=== PATIENT | male | born 1975 | race Hispanic/Latino ===

== ENCOUNTER 2017-08-19 15:02 | Emergency (ER) | payer OTHER, SELFPAY ==
--- NOTE | 2017-08-19 18:01 | ER ---
Nurse's Notes [facility] Name: Harini Villalobos Age: 41 yrs Sex: Male : 1975 Arrival Date: 08/19/2017 Time: 15:02 Bed 15 Private MD: Diagnosis: Low back pain;Radiculopathy, lumbar region Presentation: 08/19 15:34 Presenting complaint: Patient states: Low back pain for 2 months. Has been seeing a chiropractor but is not improving. Was instructed to go see PCP. Unable to get into PCP until next week. Ambulated with steady gait to triage. Patient was asleep in waiting room when called. Transition of care: patient was not received from another setting of care. Onset of symptoms was May 2017. Initial Sepsis Screen: Does the patient meet any 2 criteria? No. Patient's initial sepsis screen is negative. Does the patient have a suspected source of infection? No. Patient's initial sepsis screen is negative. Care prior to arrival: None. 15:34 Method Of Arrival: Ambulatory 15:34 Acuity: MELO 5 Triage Assessment: 15:36 General: Appears in no apparent distress. comfortable, Behavior is calm, cooperative, aj appropriate for age. Pain: Complains of pain in coccyx, left lower back and right lower back Pain currently is 7 out of 10 on a pain scale. Neuro: Level of Consciousness is awake, alert, obeys commands, Oriented to person, place, time, situation, Appropriate for age. Respiratory: Airway is patent Respiratory effort is even, unlabored, Respiratory pattern is regular, symmetrical. Derm: Skin is intact, is healthy with good turgor, Skin is pink, warm \T\ dry. normal. Musculoskeletal: Circulation, motion, and sensation intact. Range of motion: intact in all extremities, Reports pain in coccyx, left lower back, right lower back, left gluteus kuldip and left gluteal fold. Historical: - Allergies: 15:36 No Known Drug Allergies; aj - Home Meds: 15:36 unknown blood pressure med [Active]; aj - PMHx: 15:36 Hypertension; Diverticulitis; aj - PSHx: 15:36 Colon resection; aj - Immunization history:: Adult Immunizations up to date. - Social history:: Smoking status: Patient/guardian denies using tobacco. Screenin:25 Abuse screen: Denies threats or abuse. Nutritional screening: No deficits noted. rb1 Tuberculosis screening: No symptoms or risk factors identified. Fall Risk None identified. Assessment: 17:25 General: Appears uncomfortable, obese, Behavior is calm, cooperative, Denies fever. rb1 Pain: Complains of pain in left lower back Pain radiates to left leg Pain currently is 10 out of 10 on a pain scale. Pain began about two months ago Aggravated by increased activity, repositioning. Neuro: Level of Consciousness is awake, alert, obeys commands, Oriented to person, place, time, situation. Cardiovascular: Capillary refill < 3 seconds is brisk in bilateral fingers. Respiratory: Airway is patent Respiratory effort is even, unlabored, Respiratory pattern is regular, symmetrical. GI: No signs and/or symptoms were reported involving the gastrointestinal system. : No signs and/or symptoms were reported regarding the genitourinary system. Derm: Skin is pink, warm \T\ dry. Musculoskeletal: Range of motion: intact in all extremities. 18:22 Reassessment: Patient appears in no apparent distress at this time. No changes from rb1 previously documented assessment. 18:30 Reassessment: discharge on hold due to shot of Toradol, waiting to make sure there are rb1 ADR. Vital Signs: 15:36 BP 161 / 101; Pulse 107; Resp 17; Temp 97.9; Pulse Ox 98% on R/A; Weight 123.83 kg; aj Height 6 ft. 0 in. (182.88 cm); Pain 7/10; 17:30 BP 146 / 80; Pulse 77; Resp 19; Pulse Ox 100% on R/A; Pain 10/10; rb1 18:22 BP 149 / 83; Pulse 83; Resp 19; Pulse Ox 99% on R/A; rb1 15:36 Body Mass Index 37.03 (123.83 kg, 182.88 cm) aj ED Course: 15:02 Patient arrived in ED. as 15:35 Triage completed. aj 15:36 Arm band placed on left wrist. Patient placed in waiting room, Patient notified of wait aj time. 16:07 Elad[facility] Aldana [facility]C [facility]. snw 16:07 Franki Loja MD is Attending Physician. snw 17:25 Patient has correct armband on for positive identification. Bed in low position. Call rb1 light in reach. Side rails up X 1. Pulse ox on. NIBP on. 17:30 Kimmy García, RN is Primary Nurse. rb1 18:50 No provider procedures requiring assistance completed. Patient did not have IV access rb1 during this emergency room visit. Administered Medications: 18:21 Drug: TORadol 60 mg Route: IM; Site: left gluteus; rb1 18:50 Follow up: Response: No adverse reaction; Pain is decreased rb1 18:21 Drug: Valium 5 mg Route: PO; rb1 18:50 Follow up: Response: No adverse reaction; Pain is decreased rb1 Outcome: 18:00 Discharge ordered by . snsantiago 18:50 Patient left the ED. rb1 18:50 Discharged to home ambulatory, with significant other. [facility] 18:50 Condition: stable 18:50 Discharge instructions given to patient, Instructed on discharge instructions, follow up and referral plans. medication usage, Demonstrated understanding of instructions, follow-up care, medications, Prescriptions given X 2. Signatures: Arlette Jeffery RN RN Eladia Bah, BRILLIANDEER LOPPER-C BRILLIANDEER LOPPER-CsnNya Sánchez Rebecca, RN RN [facility] Maren Angel [facility] Corrections: (The following items were deleted from the chart) 19:26 19:00 Patient left the ED. 5 [facility]
--- NOTE | 2017-08-19 18:01 | EDPHYS ---
Physician Documentation [facility] Name: Harini Villalobos Age: 41 yrs Sex: Male : 1975 Arrival Date: 08/19/2017 Time: 15:02 Bed 15 Private MD: ED Physician Franki Loja HPI: 08/19 21:48 This 41 yrs old Male presents to ER via Ambulatory with complaints of Sciatic snw Nerve. 21:48 The patient presents with pain that is acute, with no known mechanism of injury, and snw decreased range of motion. The symptoms are located in the low back. Onset: The symptoms/episode began/occurred suddenly, 2 week(s) ago, and became persistent. The pain radiates to the left leg. Associated signs and symptoms: The patient has no apparent associated signs or symptoms. Severity of symptoms: At their worst the symptoms were moderate, severe. The patient has not experienced similar symptoms in the past. The patient has been recently seen by a physician: went to chiropractor and symptoms seem worse per report. Historical: - Allergies: 15:36 No Known Drug Allergies; aj - Home Meds: 15:36 unknown blood pressure med [Active]; aj - PMHx: 15:36 Hypertension; Diverticulitis; aj - PSHx: 15:36 Colon resection; aj - Immunization history:: Adult Immunizations up to date. - Social history:: Smoking status: Patient/guardian denies using tobacco. ROS: 21:45 Constitutional: Negative for fever, chills, and weight loss, Eyes: Negative for injury, snw pain, redness, and discharge, ENT: Negative for injury, pain, and discharge, Neck: Negative for injury, pain, and swelling, Cardiovascular: Negative for chest pain, palpitations, and edema, Respiratory: Negative for shortness of breath, cough, wheezing, and pleuritic chest pain, Abdomen/GI: Negative for abdominal pain, nausea, vomiting, diarrhea, and constipation, : Negative for injury, bleeding, discharge, and swelling, MS/Extremity: Negative for injury and deformity, Skin: Negative for injury, rash, and discoloration, Neuro: Negative for headache, weakness, numbness, tingling, and seizure. 21:45 Back: Positive for decreased range of motion, pain with movement, of the lumbar area, left low back and right low back. Exam: 21:45 Constitutional: This is a well developed, well nourished patient who is awake, alert, snw and in no acute distress. Head/Face: Normocephalic, atraumatic. Eyes: Pupils equal round and reactive to light, extra-ocular motions intact. Lids and lashes normal. Conjunctiva and sclera are non-icteric and not injected. Cornea within normal limits. Periorbital areas with no swelling, redness, or edema. ENT: Nares patent. No nasal discharge, no septal abnormalities noted. Tympanic membranes are normal and external auditory canals are clear. Oropharynx with no redness, swelling, or masses, exudates, or evidence of obstruction, uvula midline. Mucous membranes moist. Neck: Trachea midline, no thyromegaly or masses palpated, and no cervical lymphadenopathy. Supple, full range of motion without nuchal rigidity, or vertebral point tenderness. No Meningismus. Chest/axilla: Normal chest wall appearance and motion. Nontender with no deformity. No lesions are appreciated. Cardiovascular: Regular rate and rhythm with a normal S1 and S2. No gallops, murmurs, or rubs. Normal PMI, no JVD. No pulse deficits. Respiratory: Lungs have equal breath sounds bilaterally, clear to auscultation and percussion. No rales, rhonchi or wheezes noted. No increased work of breathing, no retractions or nasal flaring. Abdomen/GI: Soft, non-tender, with normal bowel sounds. No distension or tympany. No guarding or rebound. No evidence of tenderness throughout. Skin: Warm, dry with normal turgor. Normal color with no rashes, no lesions, and no evidence of cellulitis. MS/ Extremity: Pulses equal, no cyanosis. Neurovascular intact. Full, normal range of motion. Neuro: Awake and alert, GCS 15, oriented to person, place, time, and situation. Cranial nerves II-XII grossly intact. Motor strength 5/5 in all extremities. Sensory grossly intact. Cerebellar exam normal. Normal gait. 21:45 Back: pain, that is moderate, of the lumbar area, left low back and right low back, vertebral tenderness, is not appreciated, muscle spasm, is appreciated in the low back area. 21:49 Neuro: Exam negative for acute changes. snw Vital Signs: 15:36 BP 161 / 101; Pulse 107; Resp 17; Temp 97.9; Pulse Ox 98% on R/A; Weight 123.83 kg; aj Height 6 ft. 0 in. (182.88 cm); Pain 7/10; 17:30 BP 146 / 80; Pulse 77; Resp 19; Pulse Ox 100% on R/A; Pain 10/10; rb1 18:22 BP 149 / 83; Pulse 83; Resp 19; Pulse Ox 99% on R/A; rb1 15:36 Body Mass Index 37.03 (123.83 kg, 182.88 cm) aj MDM: 17:29 Patient medically screened. snw 21:46 Data reviewed: vital signs, nurses notes. Data interpreted: Pulse oximetry: on room air snw is 99 %. Interpretation: normal. Counseling: I had a detailed discussion with the patient and/or guardian regarding: the historical points, exam findings, and any diagnostic results supporting the discharge/admit diagnosis, the presence of at least one elevated blood pressure reading (>120/80) during this emergency department visit, the need for outpatient follow up, to return to the emergency department if symptoms worsen or persist or if there are any questions or concerns that arise at home. Special discussion: I have referred the patient to see his PCP for further evaluation of high blood pressure. Based on the history and exam findings, there is no indication for further emergent testing or inpatient evaluation. I discussed with the patient/guardian the need to see the primary care provider for further evaluation of the symptoms. Administered Medications: 18:21 Drug: TORadol 60 mg Route: IM; Site: left gluteus; rb1 18:50 Follow up: Response: No adverse reaction; Pain is decreased rb1 18:21 Drug: Valium 5 mg Route: PO; rb1 18:50 Follow up: Response: No adverse reaction; Pain is decreased rb1 Disposition: 08/19/17 18:00 Discharged to Home. Impression: Low back pain, Radiculopathy, lumbar region. - Condition is Stable. - Discharge Instructions: Back Pain, Adult, Hypertension, Lumbosacral Radiculopathy, Musculoskeletal Pain, Back Injury Prevention, [id number], Back Exercises, [id number], Cryotherapy, Heat Therapy. - Prescriptions for Diclofenac Sodium 75 mg Oral Tablet Sustained Release - take 1 tablet by ORAL route 2 times per day; 30 tablet. orphenadrine citrate 100 mg Oral Tablet Sustained Release - take 1 tablet by ORAL route 2 times per day As needed; 20 tablet. - Work release form, Medication Reconciliation Form, Thank You Letter, Antibiotic Education, Prescription Opioid Use form. - Follow up: Private Physician; When: 2 - 3 days; Reason: Recheck today's complaints, Continuance of care, Re-evaluation by your physician. Follow up: Emergency Department; When: As needed; Reason: Worsening of condition. Addendum: 08/22/2017 19:05 Co-signature as Attending Physician, Franki Loja MD. g s Signatures: Arlette Jeffery, RN RN Eladia Bah, EMPLOYEE COMMUNICATIONS MANAGER-C EMPLOYEE COMMUNICATIONS MANAGER-Csnw Kimmy García, RN RN [facility] Maren Angel [facility] Franki Loja MD MD
[2017-08-19] MEDS ORDERED: DIAZEPAM 5 MG TABLET ONE (18:14)
[2017-08-19] MEDS ORDERED: KETOROLAC 30 MG/ML INJ ONE (18:15)
== END 2017-08-19 19:00 | disposition home or self-care (01) ==
LOC: ER 15:02
DX: M54.16 Radiculopathy, lumbar region (principal); I10 Essential (primary) hypertension
CPT/HCPCS: 96372; 99283

== ENCOUNTER 2021-10-20 16:12 | Emergency (ER) | payer SELFPAY ==
[2021-10-20 17:18] LABS: Absolute Lymphocytes (CBC) 0.9 K/uL (0.7-4.9); Hematocrit 46.2 % (39.6-49.0); Lymphocytes % 8.8 % (15.3-44.8); MPV 7.8 fL (7.6-11.3); RBC Red Blood Cell Count 5.45 M/uL (4.33-5.43)
[2021-10-20 17:23] LABS: Albumin 3.2 g/dL (3.4-5.0); Bilirubin Total 0.8 mg/dL (0.2-1.0); Potassium 3.3 mmol/L (3.5-5.1); Protein, Total 7.8 g/dL (6.4-8.2)
--- NOTE | 2021-10-20 18:10 | RAD REPORT ---
EXAM DESCRIPTION: CT - Abdomen Pelvis W Contrast - 10/20/2021 5:51 pm CLINICAL HISTORY: abdominal pain, history of colon resection COMPARISON: No comparisons TECHNIQUE: Biphasic, helical CT imaging of the abdomen and pelvis was performed following 100 ml non -ionic IV contrast. No oral contrast administered. All CT scans are performed using dose optimization technique as appropriate and may include automated exposure control or mA/KV adjustment according to patient size. FINDINGS: Small right-sided pleural effusion is present with trace left-sided pleural fluid. No infi ltrate or mass in the lower lung rivera. No pericardial effusion. Liver size is normal with no focal liver lesions seen. No splenic abnormality identifiable. Multiple gallstones are present believed to be incidental to the clinical presentation. No acute gallbladder w all thickening or edema. No biliary tree abnormality. Pancreatic parenchyma appears to enhance normally with no pancreatic origin mass confirmed. However, there are numerous peripancreatic abnormal lymph nodes up to 3 x 2 cm in size. The patient has multip le lymph nodes along the mesenteric vascular pedicle origins. A spiculated 2.6 centimeter mass is pre sent in the midline central mesenteries. Numerous lymph nodes are scattered along the mesenteric vasc ulature. A 3.1 x 2.7 centimeter mass or compliments of lymph nodes noted along the right lateral margin of the aorta just below the renal vasculature. A few additional scattered periaortic lymph nodes seen. Symmetric renal function is seen with no hydronephrosis or suspicious renal mass. No pyelonephritis o r acute parenchymal process. No bladder abnormalities. No adrenal abnormalities. Fluid-filled stomach shows no wall thickening or mass. No duodenum abnormality is seen. No acute smal l bowel process identifiable. Patient is status post partial right-sided colectomy. At the anastomosi s with the small bowel there is slightly thickened or nodular tissue. Baseline for the patient is unk nown. There is no oral contrast distending this portion of the bowel. This may still be within normal limits. Or recurrence at an anastomotic site cannot be excluded if the colon was resected for malign ant purposes. No omental thickening. Trace amount of ascites present. No free air or pneumatosis. There is no bulk y lymphadenopathy. No suspicious bony findings. IMPRESSION: Numerous malignant lymph nodes are present in the peripancreatic region, periaortic and scattered along the mesenteric vasculature. The peripancreatic lymph nodes do not appear to be associated with any defined pancreatic origin mass . The bowel wall at the right-side colon - small bowel anastomosis is slightly thickened and nodular. B aseline for the patient is unknown. This may be normal. Recurrence at this site cannot be excluded en tirely. The abnormal abdominal lymph nodes are not clustered near this site. None of the malignant lymph nodes seen on this study are amenable to percutaneous biopsy.
[2021-10-20] MEDS ORDERED: ONDANSETRON 4 MG/2 ML VIAL ONE (19:02)
--- NOTE | 2021-10-20 20:07 | ER ---
Nurse's Notes [facility] Name: Harini Villalobos Age: 46 yrs Sex: Male : 1975 Arrival Date: 10/20/2021 Time: 16:39 Bed 14 Private MD: Diagnosis: Nausea with vomiting, unspecified;Diarrhea, unspecified Presentation: 10/20 16:44 Chief complaint: Patient states: back pain, vomiting, diarrhea, chills. Coronavirus aa5 screen: At this time, the client does not indicate any symptoms associated with coronavirus-19. Ebola Screen: No symptoms or risks identified at this time. Initial Sepsis Screen: Does the patient meet any 2 criteria? No. Patient's initial sepsis screen is negative. Does the patient have a suspected source of infection? No. Patient's initial sepsis screen is negative. Risk Assessment: Do you want to hurt yourself or someone else? Patient reports no desire to harm self or others. Onset of symptoms was September 2021. 16:44 Acuity: MELO 3 aa5 16:44 Method Of Arrival: Ambulatory aa5 Triage Assessment: 18:00 General: Appears in no apparent distress. Behavior is calm, cooperative. jh6 Historical: - Allergies: 16:43 No Known Allergies; aa5 - Home Meds: 16:47 metoprolol 100mg BID [Active]; aa5 18:52 UNKNOWN BLOOD PRESSURE MED [Active]; jh6 - PMHx: 16:43 Diverticulitis; Hypertension; aa5 - PSHx: 16:44 Colon Resection; aa5 - Immunization history:: Adult Immunizations unknown. - Social history:: Smoking status: Patient denies any tobacco usage or history of. Screenin:00 Abuse screen: Denies threats or abuse. Denies injuries from another. jh6 18:00 Nutritional screening: No deficits noted. Tuberculosis screening: No symptoms or risk jh6 factors identified. Never had TB. Fall Risk None identified. Assessment: 17:12 Reassessment: Patient is alert, oriented x 3, equal unlabored respirations, skin aa5 warm/dry/pink. 18:30 Reassessment: Patient and/or family updated on plan of care and expected duration. Pain jh6 level reassessed. Patient states symptoms have improved. 18:30 Pain: Complains of pain in epigastric area and abdomen diffusely Pain currently is 5 jh6 out of 10 on a pain scale. GI: Abdomen is non-distended, Bowel sounds hyperactive in suprapubic area, right upper quadrant, left upper quadrant, right lower quadrant, left lower quadrant and abdomen diffusely Abdomen is tender to palpation in right upper quadrant and left upper quadrant Reports nausea, vomiting. Vital Signs: 16:44 BP 187 / 116; Pulse 76; Resp 18 S; Temp 97.5(TE); Pulse Ox 99% on R/A; Weight 120.2 kg aa5 (R); Height 6 ft. 0 in. (182.88 cm) (R); 17:12 Resp 14 S; Pulse Ox 99% on R/A; aa5 18:30 BP 185 / 97; Pulse 74; Resp 17; Temp 97.5(O); Pulse Ox 99% ; jh6 20:45 BP 172 / 93; Pulse 72; Resp 17; Temp 97.4(O); ke1 16:44 Body Mass Index 35.94 (120.20 kg, 182.88 cm) aa5 ED Course: 16:39 Patient arrived in ED. rg4 16:40 Samuel Sheehan MD is Attending Physician. rn 16:40 Karli Damon FNP-C is PHCP. kb 16:43 Arm band placed on. aa5 16:45 Triage completed. aa5 16:57 Initial lab(s) drawn, by in, sent to lab. Inserted saline lock: 20 gauge in right aa5 antecubital area, using aseptic technique. Blood collected. 17:01 Karli Damon FNP-C is PHCP. kb 17:01 Samuel Sheehan MD is Attending Physician. kb 17:53 CT Abd/Pelvis - IV Contrast Only In Process Unspecified. EDMS 18:00 Bed in low position. Call light in reach. Side rails up X 1. Adult w/ patient. jh6 18:10 Danielle Betts, RN is Primary Nurse. 6 21:03 No provider procedures requiring assistance completed. IV discontinued. ke1 Administered Medications: 17:05 Drug: NS 0.9% 1000 ml Route: IV; Rate: 1 bolus; Site: right antecubital; aa5 19:00 Follow up: IV Status: Completed infusion ke1 17:05 Drug: Zofran (Ondansetron) 4 mg Route: IVP; Site: right antecubital; aa5 17:11 Follow up: Response: No adverse reaction aa5 17:07 Drug: morphine 4 mg Route: IVP; Infused Over: 4 mins; Site: right antecubital; aa5 17:11 Follow up: Response: RASS: Alert and Calm (0) aa5 18:56 Drug: Zofran (Ondansetron) 4 mg Route: IVP; Site: right antecubital; 6 19:30 Follow up: Response: Marked relief of symptoms ke1 Medication: 21:03 VIS not applicable for this client. ke1 Outcome: 20:06 Discharge ordered by . haylie 21:03 Discharged to home ambulatory. ke1 21:03 Condition: good 21:03 Discharge instructions given to patient. 21:05 Patient left the ED. ke1 Signatures: Dispatcher [employer] EDMS Karli Damon, FRANCISCO-C PAEDIATRICIAN-CkSamuel Keys MD MD rn Calderon, Audri, RN RN shane5 Pamela Do [facility] Danielle Betts RN RN 6 Avery Alejandro, TIM RN ke1 Corrections: (The following items were deleted from the chart) 16:46 16:44 Pulse 76bpm; Resp 18bpm; Spontaneous; Pulse Ox 99% RA; Temp 97.5F Temporal; aa5 aa5 16:47 16:44 Pulse 76bpm; Resp 18bpm; Spontaneous; Pulse Ox 99% RA; Temp 97.5F Temporal; 120.2 aa5 kg Reported; Height 6 ft. 0 in. Reported; BMI: 35.9; aa5
--- NOTE | 2021-10-20 20:07 | EDPHYS ---
Physician Documentation [facility] Name: Harini Villalobos Age: 46 yrs Sex: Male : 1975 Arrival Date: 10/20/2021 Time: 16:39 Bed 14 Private MD: ED Physician Samuel Sheehan HPI: 10/20 18:29 This 46 yrs old Male presents to ER via Ambulatory with complaints of Vomiting.kb 18:29 The patient presents to the emergency department with nausea, vomiting, diarrhea, kb abdominal pain. Onset: The symptoms/episode began/occurred at 01:00. Possible causes: unknown. The symptoms are aggravated by nothing. The symptoms are alleviated by nothing. Associated signs and symptoms: Pertinent positives: abdominal pain, diarrhea, nausea, vomiting. Severity of symptoms: At their worst the symptoms were moderate in the emergency department the symptoms are unchanged. The patient has not experienced similar symptoms in the past. The patient has not recently seen a physician. Pt reports n/v/d that started at 0100. States he has diffuse abd pain due to vomiting. Historical: - Allergies: 16:43 No Known Allergies; aa5 - Home Meds: 16:47 metoprolol 100mg BID [Active]; aa5 18:52 UNKNOWN BLOOD PRESSURE MED [Active]; jh6 - PMHx: 16:43 Diverticulitis; Hypertension; aa5 - PSHx: 16:44 Colon Resection; aa5 - Immunization history:: Adult Immunizations unknown. - Social history:: Smoking status: Patient denies any tobacco usage or history of. ROS: 18:28 Respiratory: Negative for shortness of breath, cough, wheezing, and pleuritic chest kb pain. 18:28 Constitutional: Positive for chills. 18:28 Abdomen/GI: Positive for abdominal pain, nausea, vomiting, and diarrhea, Negative for constipation, abdominal distension. 18:28 Back: Positive for pain at rest, pain with movement, of the right mid back and right low back. 18:28 All other systems are negative. Exam: 18:28 Constitutional: This is a well developed, well nourished patient who is awake, alert, kb and in no acute distress. Head/Face: Normocephalic, atraumatic. ENT: Moist Mucous membranes Cardiovascular: Regular rate and rhythm with a normal S1 and S2. No gallops, murmurs, or rubs. No pulse deficits. Respiratory: Respirations even and unlabored. No increased work of breathing. Talking in full sentences Skin: Warm, dry with normal turgor. Normal color. MS/ Extremity: Pulses equal, no cyanosis. Neurovascular intact. Full, normal range of motion. Neuro: Awake and alert, GCS 15, oriented to person, place, time, and situation. Moves all extremities. Normal gait. Psych: Awake, alert, with orientation to person, place and time. Behavior, mood, and affect are within normal limits. 18:28 Abdomen/GI: Inspection: abdomen appears normal, Bowel sounds: normal, Palpation: abdomen is soft and non-tender, in all quadrants. 18:29 Back: pain, that is mild, of the right mid back and right low back. kb Vital Signs: 16:44 BP 187 / 116; Pulse 76; Resp 18 S; Temp 97.5(TE); Pulse Ox 99% on R/A; Weight 120.2 kg aa5 (R); Height 6 ft. 0 in. (182.88 cm) (R); 17:12 Resp 14 S; Pulse Ox 99% on R/A; aa5 18:30 BP 185 / 97; Pulse 74; Resp 17; Temp 97.5(O); Pulse Ox 99% ; jh6 20:45 BP 172 / 93; Pulse 72; Resp 17; Temp 97.4(O); ke1 16:44 Body Mass Index 35.94 (120.20 kg, 182.88 cm) aa5 MDM: 16:40 Patient medically screened. rn 18:27 Data reviewed: vital signs, nurses notes. Data interpreted: Pulse oximetry: on room air kb is 99 %. Interpretation: normal. 19:25 Special discussion: I discussed with the patient the need to follow-up with the kb PCP/specialist for the noted incidental finding on X-ray/CT scanning. ED course: Pt educated on malignant lymphnodes and to follow up with GI for further workup. Verbal understanding received from pt and spouse. . 20:06 Counseling: I had a detailed discussion with the patient and/or guardian regarding: the kb historical points, exam findings, and any diagnostic results supporting the discharge/admit diagnosis, lab results, radiology results, the need for outpatient follow up, a family practitioner, a patient service representative, to return to the emergency department if symptoms worsen or persist or if there are any questions or concerns that arise at home. 10/20 16:49 Order name: CBC with Diff; Complete Time: 17:36 kb 10/20 16:49 Order name: CMP; Complete Time: 17:34 kb 10/20 16:49 Order name: Lipase; Complete Time: 17:34 kb 10/20 16:49 Order name: Flu; Complete Time: 17:34 kb 10/20 16:49 Order name: COVID-19 SARS RT PCR (Document "Date of Onset" if Symptomatic); Complete kb Time: 18:46 10/20 17:37 Order name: CT Abd/Pelvis - IV Contrast Only; Complete Time: 18:16 kb 10/20 16:49 Order name: IV Saline Lock; Complete Time: 16:59 kb 10/20 16:49 Order name: Labs collected and sent; Complete Time: 16:59 kb 10/20 18:53 Order name: PO challenge; Complete Time: 21:04 kb Administered Medications: 17:05 Drug: NS 0.9% 1000 ml Route: IV; Rate: 1 bolus; Site: right antecubital; aa5 19:00 Follow up: IV Status: Completed infusion ke1 17:05 Drug: Zofran (Ondansetron) 4 mg Route: IVP; Site: right antecubital; aa5 17:11 Follow up: Response: No adverse reaction aa5 17:07 Drug: morphine 4 mg Route: IVP; Infused Over: 4 mins; Site: right antecubital; aa5 17:11 Follow up: Response: RASS: Alert and Calm (0) aa5 18:56 Drug: Zofran (Ondansetron) 4 mg Route: IVP; Site: right antecubital; jh6 19:30 Follow up: Response: Marked relief of symptoms ke1 Disposition Summary: 10/20/21 20:06 Discharge Ordered Location: Home kb Condition: Stable kb Diagnosis - Nausea with vomiting, unspecified kb - Diarrhea, unspecified kb Followup: kb - With: Emergency Department - When: As needed - Reason: Worsening of condition Followup: kb - With: Private Physician - When: 2 - 3 days - Reason: Recheck today's complaints, Continuance of care, Re-evaluation by your physician Discharge Instructions: - Discharge Summary Sheet kb - Food Choices to Help Relieve Diarrhea, Adult kb - Nausea and Vomiting, Adult, [id number] kb - Diarrhea, Adult, [id number] kb Forms: - Medication Reconciliation Form kb - Thank You Letter kb - Antibiotic Education kb - Prescription Opioid Use kb - Work release form ke1 Prescriptions: - Zofran 4 mg Oral Tablet - take 1 tablet by ORAL route every 6 hours As needed; 20 tablet; Refills: 0, kb Product Selection Permitted - dicyclomine 20 mg Oral Tablet - take 1 tablet by ORAL route 4 times per day As needed; 20 tablet; Refills: 0, kb Product Selection Permitted Signatures: Dispatcher [employer] EDMS Karli Damon, PERSONAL BANKING OFFICER-C PERSONAL BANKING OFFICER-Ckb Samuel Sheehan MD MD rn Calderon, Audri RN RN aa5 Danielle Betts RN RN jh6 Avery Alejandro RN ke1
[2021-10-20 22:22] VITALS: O2SAT 99
[2021-10-20 22:30] VITALS: BP 172/93; TEMP 97.4
== END 2021-10-20 21:05 | disposition home or self-care (01) ==
LOC: ER 16:12
DX: R11.2 Nausea with vomiting, unspecified (principal); R19.7 Diarrhea, unspecified; I10 Essential (primary) hypertension
CPT/HCPCS: 36415; 74177; 80053; 83690; 85025; 87804; J2405; Q9967; U0003

== ENCOUNTER 2023-11-02 10:57 | Emergency (ER) | payer BC ==
[2023-11-02] MEDS ORDERED: HYDROCODONE/APAP 7.5/325 MG TAB ONE (11:33)
--- OUTSIDE RECORDS SUMMARY | 2023-11-02 11:36 | XMS REPORT | Clinical Summary ---
Author Name Unknown Organization [facility] Address [address] [place] [address] Care Team Providers Care Sql Server Bi Developer Name Role Phone Eliane Harris MD Unavailable [phone] Carol Gonzales Primary Care Provider [phone] Jun Cotton MD Primary Care Provider [phone] Allergies No known active allergies Medications Medication Sig Dispensed Refills Start Date End Date Status metoprolol tartrate (LOPRESSOR) 50 mg tablet Take 1 tablet (50 mg) by mouth twice daily. Active furosemide (LASIX) 20 mg tablet Take 1 tablet (20 mg) by mouth twice daily. Active multivit-min/folic/ vit K/lycop (MEN'S MULTIVITAMIN ORAL) Take by mouth daily as needed. Active ALPRAZolam (Xanax) 0.5 mg tabletIndications:C laustrophobia Take 1 tablet (0.5 mg) by mouth nightly as needed (take [address] or MRI). 2 tablet 10/19/2023 Active pancrelipase (CREON) 12,000 units-38,000 units-60,000 units capsuleIndications: Pancreatic insufficiency Take 2-3 capsules with meals and 1-2 capsules with snacks 390 capsule 3 10/26/2023 Active pantoprazole (PROTONIX) 40 mg EC tablet Take 1 tablet (40 mg) by mouth daily as needed. 4 Discontinue d(Therapy completed) octreotide acetate (SANDOSTATIN INJECTION) Inject as directed every 28 days. 4 Discontinue d(Formulary change) ALPRAZolam (Xanax) 0.5 mg tabletIndications:C laustrophobia Take 1 tablet (0.5 mg) by mouth nightly as needed (take [address] or MRI). 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) 10/29/2023 Travel 10/26/2023 11:20 AM CDT [facility] [address] [place] [address], [address] [place] [address] [place] [address] Jun Cotton MD 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); Pancreatic insufficiency 10/26/2023 Orders Only [facility] [address] [place] [address], [address] [place] [address] [place] [address] Keeley Teran PA-C 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) 10/25/2023 12:20 PM CDT Ancillary Procedure [address] [address] Jun Cotton MD Malignant carcinoid tumor of the ileum 10/25/2023 Travel 10/22/2023 Telephone [facility] [address] [place] [address], [facility] [place] [address] Nadine Shabazz MA 10/19/2023 Orders Only [facility] [address] [place] [address], [facility] [place] [address] Keeley Teran PA-C Claustrophobia 10/19/2023 Refill [facility] [address], [address] [place] [address] [place] [address] Jacinta Lee, TIM 10/01/2023 11:00 AM CDT Clinical Support [facility] [address] [place] [address], [address] [place], [place] [address] [address] Jun Cotton MD Lapizar, Maryjune P, RN 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) 10/01/2023 Travel 09/03/2023 11:00 AM CDT Clinical Support [facility] [address], [address] [place] [address] Jun Cotton MD Wright, Elcenia, RN 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) 09/03/2023 Travel 08/06/2023 11:00 AM CDT Clinical Support [facility] [address] [address] Jun Cotton MD Lapizar, Maryjune P RN 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) 08/06/2023 Travel 07/27/2023 11:20 AM CDT Telemedicine [facility] [address], [address] [place] [address] Jun Cotton MD 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) 07/22/2023 [facility] Only [facility] [address] [place] [address], [address] [place] [address] Keeley Teran PA-C 07/14/2023 12:53 PM CDT - 07/14/2023 11:59 PM CDT Hospital Encounter Main CT IMAGING [address] [place] [address], [facility] [place] [address] Jun Cotton MD Malignant carcinoid tumor of the ileum Discharge Disposition: Home 07/14/2023 12:30 PM CDT - 07/14/2023 12:52 PM CDT Hospital Encounter [facility] [address] [place] [address], [place] [address] Jun Cotton MD Malignant carcinoid tumor of the ileum Discharge Disposition: Home 06/25/2023 10:00 AM CHAR BELT OPERATOR Clinical Support [facility] [address] [place] [address], 7th [place] [address] Jun Cotton MD Wright, Elcenia, RN 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) 06/25/2023 Travel 05/28/2023 10:00 AM CHAR BELT OPERATOR Clinical Support [facility] [address] [place] [address], [facility] [place] [address] Jun Cotton MD Lapizar, Maryjune P, RN 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) 05/28/2023 Travel 04/23/2023 Telephone [facility] [address] [place] [address], [address] [place], [place] [address] [address] Sunni Jacobson RN 04/23/2023 Documentation [facility] [address] [place] [address], [facility] [place] [address] Sunni Jacobson RN 04/15/2023 10:00 AM CHAR BELT OPERATOR Nutrition Clinical Nutrition For your Nutrition appointment location directions please call: Carol Gonzales PA Moore, Stephanie, CONNIE 04/15/2023 9:20 AM CHAR BELT OPERATOR Follow-Up [facility] [address] [place] [address], [address] [place] [address] [place] [address] Jun Cotton MD 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) 04/15/2023 Travel 04/14/2023 10:02 AM CHAR BELT OPERATOR - 04/14/2023 11:59 PM CHAR BELT OPERATOR Hospital Encounter [facility] [address] [place] [address], [place] [address] Jun Cotton MD Malignant carcinoid tumor of the ileum Discharge Disposition: Home 04/14/2023 10:02 AM CHAR BELT OPERATOR - 04/14/2023 11:59 PM CHAR BELT OPERATOR Hospital Encounter Main CT IMAGING [address] [facility] Main Bldg, 3rd [place] [address] Jun Cotton MD Malignant carcinoid tumor of the ileum Discharge Disposition: Home 01/11/2023 3:00 PM CDT Nutrition Clinical Nutrition For your Nutrition appointment location directions please call: Jun Cotton MD Moore, Stephanie, RD Malignant carcinoid tumor of the ileum 01/01/2023 Lab Requisition [facility] Bradley Monteiro MD Ketcham, Megan 12/31/2022 3:00 PM CDT [facility]Up [facility] [address] [place] [address], 7th [place] [address] Jun Cotton MD 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) 12/31/2022 Travel 12/24/2022 10:57 AM CDT - 12/24/2022 11:59 PM CDT Hospital Encounter Main CT IMAGING [facility] Main [facility], 3rd [place] [address] Carol Gonzales PA Neuroendocrine tumor Discharge Disposition: Home 12/24/2022 10:20 AM CDT - 12/24/2022 10:56 AM CDT Hospital Encounter [facility] [address] [place] [address] Main [facility], [place] [address] Carol Gonzales PA Neuroendocrine tumor Discharge Disposition: Home 12/24/2022 9:00 AM CDT Office Visit [facility] [address] [place] [address] Main [facility], 7th [place] [address] Carol Gonzales PA Claustrophobia (Primary Dx); Neuroendocrine tumor 12/24/2022 8:30 AM CDT NPR MDA PATIENT ACCESS 12/24/2022 Travel 12/21/2022 Orders Only [facility] [address] [place] [address] Main [facility], 7th [place] [address] Carol Gonzales PA Neuroendocrine tumor (Primary Dx) 12/19/2022 2:55 AM CDT Ancillary Procedure [facility] [place] [address] Carol Gonzales ROBBIE Cancer 12/19/2022 2:50 AM CDT Ancillary Procedure [facility] [place] [address] Carol Gonzales, PA Cancer 12/19/2022 2:45 AM CDT Ancillary Procedure [facility] [address] [place] [address] Carol Gonzales, PA Cancer 12/19/2022 2:40 AM CDT Ancillary Procedure [facility] [address] [place] [address] Carol Gonzales, ROBBIE Cancer 12/19/2022 2:35 AM CDT Ancillary Procedure [facility] [address] [place] [address] Carol Gonzales [place] Cancer 12/19/2022 2:30 AM CDT Ancillary Procedure [facility] [address] [place] [address] Carol Gonzales [place] Cancer 12/19/2022 2:25 AM CDT Ancillary Procedure [facility] [address] [place] [address] Carol Gonzales, [place] Cancer 12/15/2022 Travel after 11/02/2022 Surgical History Surgery Date Site/Laterality Comments COLONOSCOPY jan 2022 UPPER GASTROINTESTINAL ENDOSCOPY mar 2022 HEMICOLECTOMY Medical History Medical History Date Comments Diverticulitis 1997 Pancreatic cancer mar 2022 Neuroendocrine tumor Umbilical hernia Chylous ascites Family History Medical History Relation Name Comments Prostate cancer Father Khadar Villalobos about 30 ye ars ago Breast cancer Mother Josie Villalobos about 30 Years ago Relation Name Status Comments Father Khadar Villalobos Mother Josie Villalobos Social History Tobacco Use Types Packs/Day Years Used Date Smoking Tobacco: Never Smokeless Tobacco: Never Alcohol Use Standard Drinks/Week Comments Not Currently 0 (1 standard drink = 0.6 oz pur e alcohol) Sex and Gender Information Value Date Recorded Sex Assigned at Not on file Gender Identity Not on file Sexual Orientation Not on file Job Start Date Occupation Industry Not on file Not on file Not on file Obstetrics History Last Filed Vital Signs Vital Sign Reading Time Taken Comments Blood Pressure 136/86 10/29/2023 9:11 AM CDT Pulse 63 10/29/2023 9:11 AM CDT Temperature 36.5 C (97.7 F) 10/29/2023 9:11 AM CD T Respiratory Rate 18 10/29/2023 9:11 AM CDT Oxygen Saturation 98% 10/29/2023 9:11 AM CDT Inhaled Oxygen Concentration - - Weight 106.6 kg (235 lb 0.2 oz) 024 12:26 PM CDT Height 181 cm (5' 11.26") 10/25/2023 12 :26 PM CDT Body Mass Index 32.54 10/25/2023 12:26 PM CDT Plan of Treatment Upcoming Encounters Date Type Department Care Team (Late st Contact Info) Description 11/26/2023 11:00 AM CDT Clinical Support [facility] [address] [place] [address], 7th [place] [address] Jun Cotton MD [address] [place] [phone] [email or web address] 12/24/2023 9:30 AM CDT Infusion [facility] [place] - Infusion [address] [address] Jun Cotton MD [address] [place] [id number] [email or web address] 01/21/2024 12:30 PM CDT Infusion MD [facility] [place] - Infusion [address] [address] Jun Cotton MD [address] [place] [id number] [email or web address] 01/26/2024 10:30 AM CDT Lab MD [facility] [address] [facility] [address] [place] [address] Jun Cotton MD [address] [place] [phone] [email or web address] 01/26/2024 11:05 AM CDT Ancillary Procedure MD [facility] [address] [facility] [address] [place] [address] Jun Cotton MD [address] [place] [phone] [email or web address] 01/27/2024 11:00 AM CDT Follow-Up [facility] [address] [place] [address], 7th [place] [address] Jun Cotton MD [address] [place] [phone] [email or web address] Health Maintenance Due Date Last Done Comments COVID-19 Vaccine (#1) 1981 Influenza Vaccine 12/26/2023 Procedures Procedure Name Priority Date/Time Associated Diagnosis Comments CT ABDOMEN PELVIS W WO CONTRAST Routine 10/25/2023 2:29 PM CDT Malignant carcinoid tumor of the ileum .CBC Routine 10/25/2023 11:42 AM CDT Malignant carcinoid tumor of the ileum NEURON SPECIFIC ENOLASE SERUM Routine 10/25/2023 11:42 AM CDT Malignant carcinoid tumor of the ileum CHROMOGRANIN A Routine 10/25/2023 11:42 AM CDT Malignant carcinoid tumor of the ileum LACTATE DEHYDROGENASE Routine 10/25/2023 11:42 AM CDT Malignant carcinoid tumor of the ileum PHOSPHORUS LEVEL Routine 10/25/2023 11:4 2 AM CDT Malignant carcinoid tumor of the ileum MAGNESIUM LEVEL Routine 10/25/2023 11:42 AM CDT Malignant carcinoid tumor of the ileum COMPREHENSIVE METABOLIC PANEL Routine 10/25/2023 11:42 AM CDT Malignant carcinoid tumor of the ileum COMPLETE BLOOD COUNT W/ DIFFERENTIAL Routine 10/25/2023 11:42 AM CDT Malignant carcinoid tumor of the ileum CT ABDOMEN PELVIS W WO CONTRAST Routine 07/14/2023 3:45 PM CDT Malignant carcinoid tumor of the ileum .CBC Routine 07/14/2023 12:50 PM CDT Malignant carcinoid tumor of the ileum NEURON SPECIFIC ENOLASE SERUM Routine 07/14/2023 12:50 PM CDT Malignant carcinoid tumor of the ileum CHROMOGRANIN A Routine 07/14/2023 12:50 PM CDT Malignant carcinoid tumor of the ileum LACTATE DEHYDROGENASE Routine 07/14/2023 12:50 PM CDT Malignant carcinoid tumor of the ileum PHOSPHORUS LEVEL Routine 07/14/2023 12:5 0 PM CDT Malignant carcinoid tumor of the ileum MAGNESIUM LEVEL Routine 07/14/2023 12:50 PM CDT Malignant carcinoid tumor of the ileum COMPREHENSIVE METABOLIC PANEL Routine 07/14/2023 12:50 PM CDT Malignant carcinoid tumor of the ileum COMPLETE BLOOD COUNT W/ DIFFERENTIAL Routine 07/14/2023 12:50 PM CDT Malignant carcinoid tumor of the ileum CT ABDOMEN PELVIS W WO CONTRAST Routine 04/14/2023 11:34 AM CHAR BELT OPERATOR Malignant carcinoid tumor of the ileum POC CREATININE Routine 04/14/2023 10:38 AM CHAR BELT OPERATOR .CBC Routine 04/14/2023 10:37 AM CHAR BELT OPERATOR Malignant carcinoid tumor of the ileum NEURON SPECIFIC ENOLASE SERUM Routine 04/14/2023 10:37 AM CHAR BELT OPERATOR Malignant carcinoid tumor of the ileum CHROMOGRANIN A Routine 04/14/2023 10:37 AM CHAR BELT OPERATOR Malignant carcinoid tumor of the ileum LACTATE DEHYDROGENASE Routine 04/14/2023 10:37 AM CHAR BELT OPERATOR Malignant carcinoid tumor of the ileum PHOSPHORUS LEVEL Routine 04/14/2023 10:3 7 AM CHAR BELT OPERATOR Malignant carcinoid tumor of the ileum MAGNESIUM LEVEL Routine 04/14/2023 10:37 AM CHAR BELT OPERATOR Malignant carcinoid tumor of the ileum COMPREHENSIVE METABOLIC PANEL Routine 04/14/2023 10:37 AM CHAR BELT OPERATOR Malignant carcinoid tumor of the ileum COMPLETE BLOOD COUNT W/ DIFFERENTIAL Routine 04/14/2023 10:37 AM CHAR BELT OPERATOR Malignant carcinoid tumor of the ileum CT CHEST ABDOMEN PELVIS W WO CONTRAST LIVER Routine 12/24/2022 2:25 PM CDT Neuroendocrine tumor POC CREATININE Routine 12/24/2022 11:51 AM CDT FRACTIONATED BILIRUBIN Routine 10:40 AM CDT Neuroendocrine tumor TOTAL PROTEIN Routine 12/24/2022 10:40 AM CDT Neuroendocrine tumor ASPARTATE AMINOTRANSFERASE Routine 12/24/2022 10:40 AM CDT Neuroendocrine tumor ALANINE AMINOTRANSFERASE Routine 023 10:40 AM CDT Neuroendocrine tumor ALKALINE PHOSPHATASE Routine 12/24/2022 10:40 AM CDT Neuroendocrine tumor ALBUMIN LEVEL Routine 12/24/2022 10:40 AM CDT Neuroendocrine tumor CALCIUM LEVEL Routine 12/24/2022 10:40 AM CDT Neuroendocrine tumor .GLOMERULAR FILTRATION RATE Routine 12/24/2022 10:40 AM CDT Neuroendocrine tumor SERUM CREATININE Routine 12/24/2022 10:4 0 AM CDT Neuroendocrine tumor ELECTROLYTE PANEL Routine 12/24/2022 10: 40 AM CDT Neuroendocrine tumor BLOOD UREA NITROGEN Routine 12/24/2022 1 0:40 AM CDT Neuroendocrine tumor GLUCOSE LEVEL Routine 12/24/2022 10:40 AM CDT Neuroendocrine tumor DIFFERENTIAL Routine 12/24/2022 10:40 AM CDT Neuroendocrine tumor .CBC Routine 12/24/2022 10:40 AM CDT Neuroendocrine tumor NEURON SPECIFIC ENOLASE SERUM Routine 12/24/2022 10:40 AM CDT Neuroendocrine tumor CHROMOGRANIN A Routine 12/24/2022 10:40 AM CDT Neuroendocrine tumor PROTHROMBIN TIME Routine 12/24/2022 10:4 0 AM CDT Neuroendocrine tumor PHOSPHORUS LEVEL Routine 12/24/2022 10:4 0 AM CDT Neuroendocrine tumor MAGNESIUM LEVEL Routine 12/24/2022 10:40 AM CDT Neuroendocrine tumor LACTATE DEHYDROGENASE Routine 12/24/2022 10:40 AM CDT Neuroendocrine tumor COMPREHENSIVE METABOLIC PANEL Routine 12/24/2022 10:40 AM CDT Neuroendocrine tumor COMPLETE BLOOD COUNT W/ DIFFERENTIAL Routine 12/24/2022 10:40 AM CDT Neuroendocrine tumor OSI PET CT SKULL TO MID THIGH Routine 11/20/2022 3:14 AM CDT Cancer after 11/02/2022 Results * CT AP W/WO contrast (10/25/2023 2:29 PM CDT) Only the most recent of3 resultswithin the time period is included. Anatomical Region Laterality Modality Abdomen, Pelvis Computed Tomogra phy 10/26/2023 8:34 AM CDT Impressions 10/26/2023 8:44 AM CDT Stable disease compared to 07/14/2023 ACTIONABLE ITEMS/RECOMMENDATIONS*: None. *An Actionable Finding is a finding that may be unrelated to the original reason for imaging but potentially actionable, meaning further investigation may be necessary. The Actionable Findings Vigilance Unit (AFVU) assists medical providers with responding to additional radiologic findings that are unexpected and potentially actionable. Narrative 10/26/2023 8:44 AM CDT FULL RESULT: Examination: CT ABDOMEN PELVIS W WO CONTRAST on 10/25/2023 2:29 PM. Clinical History: Malignant carcinoid tumor of the ileum. Indication: NET restaging, liver protocol please. Comparison: 07/14/2023. Technique: CT ABDOMEN PELVIS W WO CONTRAST. FINDINGS: Lower Thorax: There is stable thickening and enhancement of the left pleura which may be from metastatic involvement. The small left pleural effusion and overlying atelectasis are stable. Hepatobiliary: No suspicious hepatic lesion. No biliary dilatation. The gallbladder contains stones but there is no cholecystitis Spleen: No splenomegaly. Pancreas: No mass or ductal dilatation. Adrenal Glands: No mass. Kidneys, Ureters, Bladder: No hydronephrosis. No suspicious renal lesion. No bladder mass. Gastrointestinal Tract: Stable postoperative changes from a right hemicolectomy. There is a stable mass in the small bowel on series 9 image 218 suspicious for the primary tumor. There is stable tethering of the small bowel to the mesenteric adenopathy along with diffuse small bowel wall edema. Pelvic Organs: No pelvic mass. 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 Stable small-volume ascites Lymph Nodes: The multicompartment adenopathy is stable. Examples include a 2.1 cm portacaval node on series 9 image 175. A 1.6 cm mesenteric node on image 187. A 2.2 cm mesenteric node on image 200. Musculoskeletal: The areas suspicious for skeletal metastases are better evaluated on the PET/CT Procedure Note Sydnee Johnson MD - 10/26/2023 FULL RESULT: Examination: CT ABDOMEN PELVIS W WO CONTRAST on 10/25/2023 2:29 PM. Clinical History: Malignant carcinoid tumor of the ileum. Indication: NET restaging, liver protocol please. Comparison: 07/14/2023. Technique: CT ABDOMEN PELVIS W WO CONTRAST. FINDINGS: Lower Thorax: There is stable thickening and enhancement of the leftpleura which may be from metastatic involvement. The small left pleuraleffusion and overlying atelectasis are stable. Hepatobiliary: No suspicious hepatic lesion. No biliary dilatation. Thegallbladder contains stones but there is no cholecystitis Spleen: No splenomegaly. Pancreas: No mass or ductal dilatation. Adrenal Glands: No mass. Kidneys, Ureters, Bladder: No hydronephrosis. No suspicious renal lesion. No bladder mass. Gastrointestinal Tract: Stable postoperative changes from a righthemicolectomy. There is a stable mass in the small bowel on series 9 [id number] suspicious for the primary tumor. There is stable tethering of thesmall bowel to the mesenteric adenopathy along with diffuse small bowelwall edema. Pelvic Organs: No pelvic mass. Peritoneum/Retroperitoneum: Stable mesenteric edema secondary to chronicobstruction of the superior mesenteric vein. Stable small-volume ascites Lymph Nodes: The multicompartment adenopathy is stable. Examples include a2.1 cm portacaval node on series 9 image 175. A 1.6 cm mesenteric node onimage 187. A 2.2 cm mesenteric node on image 200. Musculoskeletal: The areas suspicious for skeletal metastases are betterevaluated on the PET/CT IMPRESSION: Stable disease compared to 07/14/2023 ACTIONABLE ITEMS/RECOMMENDATIONS*: None. *An Actionable Finding is a finding that may be unrelated to the originalreason for imaging but potentially actionable, meaning furtherinvestigation may be necessary. The Actionable Findings Vigilance Unit(AFVU) assists medical providers with responding to additional radiologicfindings that are unexpected and potentially actionable. Jun Cotton MD IMG CT ORDERABLES * (ABNORMAL) .CBC (10/25/2023 11:42 AM CDT) Only the most recent of4 resultswithin the time period is included. White Blood Cell 7.2 4.1 - 10.5 K/uL 10/25/2023 11:52 AM [facility] Red Blood Cell 5.37 4.30 - 6.04 M/uL 10/25/2023 11:52 AM [facility] Hemoglobin 16.0 13.3 - 17.4 g/dL 10/25/2023 11:52 AM [facility] Hematocrit 47.4 39.5 - 51.8 % 10/25/2023 11:52 AM [facility] Mean Cell Volume 88 82 - 99 fL 10/25/19 11:52 AM [facility] Mean Cell Hemoglobin 29.8 26.6 - 33.2 pg 10/25/2023 11:52 AM [facility] Mean Cell Hemoglobin Concentration 33.8 31.1 - 35.2 g/dL 10/25/2023 11:52 AM [facility] RDW-SD 42.1 37.5 - 49.7 fL 10/25/2023 11:52 AM [facility] Red Cell Diameter Width 13.0 11.6 - 15.5 % 10/25/2023 11:52 AM [facility] Platelet 275 160 - 397 K/uL 10/25/2023 11:52 AM [facility] Mean Platelet Volume 8.5(L) 9.1 - 12.6 fL 10/25/2023 11:52 AM [facility] Neutrophil % 70.2 43.2 - 72.7 % 10/25/2023 11:52 AM [facility] Lymphocyte % 18.2 16.8 - 46.2 % 10/25/2023 11:52 AM [facility] Monocyte % 9.1 5.1 - 12.5 % 10/25/2023 11:52 AM [facility] Eosinophil % 1.4 0.4 - 6.3 % 10/25/2023 11:52 AM [facility] Basophil % 0.3 0.2 - 1.4 % 10/25/2023 11:52 AM [facility] IGRE % 0.8 0.1 - 1.5 % 10/25/2023 11:52 AM [facility] Comment:The IGRE% includes M etamyelocytes, Myelocytes and Promyelocytes. Neutrophil Abs 5.03 1.95 - 7.25 K/uL 10/25/2023 11:52 AM [facility] Lymphocyte Abs 1.30 1.01 - 3.24 K/uL 10/25/2023 11:52 AM [facility] Monocyte Abs 0.65 0.24 - 0.85 K/uL 10/25/2023 11:52 AM [facility] Eosinophil Abs 0.10 0.02 - 0.50 K/uL 10/25/2023 11:52 AM [facility] Basophil Abs 0.02 0.02 - 0.09 K/uL 10/25/2023 11:52 AM [facility] IG Abs 0.06 0.01 - 0.12 K/uL 10/25/2023 11:52 AM [facility] Blood Peripheral blood specimen / Unknown Venipuncture / Unknown 10/25/2023 11:42 AM CDT 10/25/2023 11:46 AM CDT Jun Cotton MD LAB BLOOD ORDERABLES [facility] [address] [facility], [facility] [address] [place] [address] * (ABNORMAL) CMP (10/25/2023 11:42 AM CDT) Only the most recent of3 resultswithin the time period is included. Bilirubin Total 0.6 0.0 - 1.2 mg/dL 10/25/2023 12:12 PM [facility] Comment:Indocyanine Green (I CG) may cause falsely elevated bilirubin results. Total and direct bilirubin must not be measured from samples containing indocyanine green. False elevation of total bilirubin can be seen in patients with IgG concentrations above 28 g/L. eGFR 109 >=60 mL/min/1. 73 sq. m 10/25/2023 12:12 PM [facility] Comment: The eGFRcr is calculated with the 2020 CKD-EPI creatinine equation using creatinine, patient's age, and sex for adults 18 years of age and older. Other factors, especially muscle mass, may affect accuracy and need to be considered. According to the Kidney Disease: Improving Global Outcomes (KDIGO) CKD Work Group 2012 Clinical Practice Guideline, chronic kidney disease (CKD) is defined as the abnormalities of kidney structure or function, present for more than 3 months, with implications for health. CKD should be classified by cause, GFR category, and albuminuria category. KDIGO guidelines provide the following GFR categories. Stage / Description / GFR mL/min/1.73 m2: G1* / Normal or high / >= 90 G2* / Mildly decreased / 60-89 G3a / Mildly to moderately decreased / 45-59 G3b / Moderately to severely decreased / 30-44 G4 / Severely decreased / 15-29 G5 / Kidney failure / <15 *In the absence of evidence of kidney damage, neither G1 nor G2 fulfill criteria for CKD. Tot Protein 6.8 6.4 - 8.3 gm/dL 10/25/2023 12:12 PM [facility] Calcium Level Total 8.5 8.2 - 10.2 mg/dL 10/25/2023 12:12 PM [facility] Alkaline Phosphatase 89 40 - 129 U/L 10/25/2023 12:12 PM [facility] Albumin Level 3.3(L) 3.5 - 5.2 gm/dL 10/25/2023 12:12 PM [facility] AST 26 <=40 U/L 10/25/2023 12:12 PM [facility] ALT 20 <=41 U/L 10/25/2023 12:12 PM [facility] Sodium Level 141 136 - 145 mmol/L 10/25/2023 12:12 PM [facility] Potassium Level 4.4 3.4 - 4.5 mmol/L 10/25/2023 12:12 PM [facility] Chloride 109(H) 98 - 107 mmol/L 10/25/2023 12:12 PM [facility] CO2 25 22 - 29 mmol/L 10/25/2023 12:12 PM [facility] Anion Gap 7 4 - 14 mmol/L 10/25/2023 12:12 PM [facility] Creatinine 0.83 0.67 - 1.17 mg/dL 10/25/2023 12:12 PM [facility] BUN 13 6 - 23 mg/dL 10/25/2023 12:12 PM [facility] Glucose Level 109(H) 70 - 99 mg/dL 10/25/2023 12:12 PM CDT [facility] Comment: Effective 11/20/15, the glucose reference intervals have been updated based on [place] [employer] guidelines (Standards of Medical Care in Diabetes 2016. Diabetes Care 2016; 39: S13-S22). Fasting blood glucose: Normal: 70-99 mg/dL Impaired fasting glucose (increased risk for diabetes or pre-diabetes): 100-125 mg/dL Diabetes mellitus: >/=126 mg/dL Random blood glucose: Normal: 70-199 mg/dL Note: Random glucose >100 mg/dL is associated with increased risk for diabetes. Blood Peripheral blood specimen / Unknown Venipuncture / Unknown 10/25/2023 11:42 AM CDT 10/25/2023 11:46 AM CDT Jun Cotton MD LAB BLOOD ORDERABLES [facility] [address], [facility] [address] [place] [address] * NSE (10/25/2023 11:42 AM CDT) Only the most recent of4 resultswithin the time period is included. Neuron Enolase-[place] 10 <=15 ng/mL 10/26/2023 11:50 AM CDT [facility] Comment: ADDITIONAL INFORMATION This test was developed and its performance characteristics determined by [facility] in a manner consistent with CLIA requirements. This test has not been cleared or approved by the U.S. Food and Drug Administration. In some immunoassays, the presence of unusually high concentrations of analyte may result in a high-dose "hook" effect. This may result in a lower or even normal measured analyte concentration. If the reported result is inconsistent with the clinical presentation, the laboratory should be alerted for troubleshooting. For diagnostic purposes, these immunoassay results should always be assessed in conjunction with the patients medical history, clinical examination and other findings. The testing method is a homogeneous time-resolved immunofluorescent assay manufactured by [employer] and performed on the [employer] Kryptor Compact Plus. Values obtained with different assay methods or kits may be different and cannot be used interchangeably. If ordered as a tumor marker, this test result cannot be interpreted as absolute evidence for the presence or absence of malignant disease. Test Performed by: [facility] [address] [place] [address] Erp Developer: Shell Lama Ph.D.; CLIA# [id number] Blood Peripheral blood specimen / Unknown Venipuncture / Unknown 10/25/2023 11:42 AM CDT 10/25/2023 11:46 AM CDT Jun Cotton MD LAB BLOOD ORDERABLES [facility] * Chromogranin A (10/25/2023 11:42 AM CDT) Only the most recent of4 resultswithin the time period is included. Chromogranin A-[place] 55 <93 ng/mL 10/27/2023 5:43 PM CDT [facility] Comment: ADDITIONAL INFORMATION The testing method is a homogeneous time-resolved immunofluorescent assay manufactured by [email or web address] and performed on the [employer] Kryptor Compact Plus. Values obtained with different assay methods or kits may be different and cannot be used interchangeably. Test results cannot be interpreted as absolute evidence for the presence or absence of malignant disease. In some immunoassays, the presence of unusually high concentrations of analyte may result in a high-dose "hook" effect. This may result in a lower or even normal measured analyte concentration. If the reported result is inconsistent with the clinical presentation, the laboratory should be alerted for troubleshooting. For diagnostic purposes, these immunoassay results should always be assessed in conjunction with the patients medical history, clinical examination and other findings. Test Performed by: [facility] [address] [place] [address] Erp Developer: Shell Lama Ph.D.; CLIA# [id number] Blood Peripheral blood specimen / Unknown Venipuncture / Unknown 10/25/2023 11:42 AM CDT 10/25/2023 11:46 AM CDT Jun Cotton MD LAB BLOOD ORDERABLES [facility] * Phosphorus (10/25/2023 11:42 AM CDT) Only the most recent of4 resultswithin the time period is included. Phosphorus Level 3.7 2.5 - 4.5 mg/dL 10/25/2023 12:12 PM CDT [facility] Blood Peripheral blood specimen / Unknown Venipuncture / Unknown 10/25/2023 11:42 AM CDT 10/25/2023 11:46 AM CDT Jun Cotton MD LAB BLOOD ORDERABLES Performing Organization Address [facility] Co de Phone Number [address] [address] * Magnesium (10/25/2023 11:42 AM CDT) Only the most recent of4 resultswithin the time period is included. Magnesium Level 1.8 1.6 - 2.6 mg/dL 10/25/2023 12:12 PM CDT [facility] Blood Peripheral blood specimen / Unknown Venipuncture / Unknown 10/25/2023 11:42 AM CDT 10/25/2023 11:46 AM CDT Jun Cotton MD LAB BLOOD ORDERABLES Performing Organization Address City/[facility]/ZIP Co de Phone Number [address] [address] * (ABNORMAL) LDH (10/25/2023 11:42 AM CDT) Only the most recent of4 resultswithin the time period is included. LDH 245(H) 135 - 225 U/L 10/25/2023 12:12 PM CDT [facility] Blood Peripheral blood specimen / Unknown Venipuncture / Unknown 10/25/2023 11:42 AM CDT 10/25/2023 11:46 AM CDT Narrative [facility] - 10/25/2023 12:12 PM CDT Results greater than 1651 U/L may not be reliable due to matrix effect with extended dilution as it exceeds the assembler bonding's recommended limit. Caution should be exercised when interpreting such values and done in conjunction with clinical context. Jun Cotton MD LAB BLOOD ORDERABLES [facility] [address], [facility] [address] [place] [address] * POC Creatinine (04/14/2023 10:38 AM CHAR BELT OPERATOR) Only the most recent of2 resultswithin the time period is included. Pathologist [facility] POC Creatinine 0.7 0.6 - 1.3 mg/dL 04/14/2023 10:40 AM CHAR BELT OPERATOR [facility] Comment:Medications, especia lly hydroxyurea or supplements, such as ascorbate, can interfere with test results causing a falsely and significantly higher result than expected. If a problem is suspected with a patient's result, a sample should be sent to the laboratory for confirmatory testing. POC eGFR 115 >=60 mL/min/1.7 3 sq. m 04/14/2023 10:40 AM CHAR BELT OPERATOR [facility] Comment: The eGFRcr is calculated with the 2020 CKD-EPI creatinine equation using creatinine, patient's age, and sex for adults 18 years of age and older. Other factors, especially muscle mass, may affect accuracy and need to be considered. According to the Kidney Disease: Improving Global Outcomes (KDIGO) CKD Work Group 2012 Clinical Practice Guideline, chronic kidney disease (CKD) is defined as the abnormalities of kidney structure or function, present for more than 3 months, with implications for health. CKD should be classified by cause, GFR category, and albuminuria category. KDIGO guidelines provide the following GFR categories. Stage / Description / GFR mL/min/1.73 m2: G1* / Normal or high / >= 90 G2* / Mildly decreased / 60-89 G3a / Mildly to moderately decreased / 45-59 G3b / Moderately to severely decreased / 30-44 G4 / Severely decreased / 15-29 G5 / Kidney failure / <15 *In the absence of evidence of kidney damage, neither G1 nor G2 fulfill criteria for CKD. Blood 04/14/2023 10:3 8 AM CHAR BELT OPERATOR 04/14/2023 10:40 AM CHAR BELT OPERATOR Narrative [facility] - 04/14/2023 10:40 AM CHAR BELT OPERATOR Method description: The i-STAT is an analyzer used for in vitro quantification of various analytes in whole blood. The device uses a single disposable cartridge which contains microfabricated sensors, a calibration solution, fluidics system, and a waste chamber. Each test cartridge contains chemically sensitive biosensors on a silicon chip that are configured to perform specific tests. The microfabricated sensors measure analyte concentration by an electrochemical assay. Jun Cotton MD POCT ORDERABLES - [facility] Unless otherwise noted, all lab tests performed by: Division of Pathology and Laboratory Medicine [address] [place] [id number] * CT Chest Abdomen Pelvis with and without Contrast Liver (12/24/2022 2:25 PM CDT) Anatomical Region Laterality Modality Chest, Abdomen, Pelvis Computed Tomography 12/24/2022 3:39 PM CDT Impressions 12/24/2022 4:18 PM CDT 1. The primary tumor is most likely located within the small bowel loop in the right mid abdomen underlying the abdominal wall and is associated with extensive confluent mesenteric lymphadenopathy that is occluding the superior mesenteric vein to the level just below its confluence with the portal vein. In addition, multiple malignant upper abdominal lymph nodes are seen. No discrete mass is seen within the pancreas. 2. Mildly subcarinal and posterior mediastinal nodes show corresponding uptake on the most recent outside 20-Fx-QOSDIAFJ studies and are consistent with metastatic disease. In addition, a few small subcentimeter superior mediastinal nodes also show uptake and likely malignant. 3. Left pleural effusion and ascites are indeterminate for malignancy. 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 4. No definite osseous metastatic disease. The previously described uptake in the left T3 and left L5 lamina on the outside 04-Ae-OPXHYTEH is most likely related to degenerative changes rather than metastatic disease and monitored on follow-up imaging. ACTIONABLE ITEMS/RECOMMENDATIONS: See Impression Narrative 12/24/2022 4:18 PM CDT Examination: CT CHEST ABDOMEN PELVIS W WO CONTRAST LIVER on 12/24/2022 2:25 PM. Clinical History: Neuroendocrine tumor. Indication: Metastatic pancreatic neuroendocrine tumor. Comparison: Outside 62-Sv-HJAHLCGD PET/CT's dated 11/20/2022 and 08/21/2022 Technique: CT of the chest, abdomen and pelvis was performed without oral or intravenous contrast followed by scanning with both oral and intravenous contrast. ONCOLOGIC FINDINGS: Primary tumor and locoregional lymph nodes: Asymmetric small bowel wall thickening in the juxta midline right mid abdomen at the level of the umbilicus underlying the anterior abdominal wall and measuring up to 1.6 cm (series 12, image 109), shows corresponding uptake on the outside 56-Cl-LTRHZZIZ PET CTs from 11/20/2022 and 08/21/2022 and most likely represents the primary tumor. Adjacent confluent mesenteric josue mass occluding the superior mesenteric vein and measuring 3.2 x 2.5 cm (series 12, image 86) represents locoregional josue involvement. This extends further superiorly along the superior mesenteric vein to the level just below the confluence with the portal vein. Multiple venous collaterals are seen within the mesentery secondary to superior mesenteric venous occlusion which are predominantly draining via omental collaterals into the splenic vein. In addition, extensive retroperitoneal, periportal, portacaval and gastrohepatic ligament lymphadenopathy seen which also showed uptake on the most recent 92-Tq-OVRAIGDV PET/CT's. The largest portacaval node measures 4.5 x 2.5 cm (series 12, image 66). The largest aortocaval lymph node measures extending into the retrocaval region at the level of insertion of the renal veins and IVC measures 4.6 x 1.4 cm (series 12, image 72). A employer relations representative gastrohepatic ligament node measures 1.2 x 1.4 cm (series 12, image 52) multiple other likely malignant lymph nodes are annotated on series 12. A few mildly enlarged mesenteric nodes are indeterminate and will be monitored on follow-up imaging. Distant metastatic disease: The malignant subcarinal node showing uptake on the most recent 23-Hm-LXVWSMJP PET/CT's measures 1.8 x 0.9 cm (series 16, image 52). The posterior mediastinal node slightly inferiorly between the azygous vein and the aorta posteriorly and esophagus anteriorly measures 1.2 x 1.1 cm (series 16, image 56) also showed uptake on the most recent prior PET/CT's. Few other smaller mediastinal nodes also show uptake on the studies and are annotated on series 16, images 24 and 43). These are consistent with metastatic disease. Moderate to large volume ascites and moderate to large volume left pleural effusion are indeterminate for malignancy. 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 Focal uptake in the left T3 vertebral body corresponds to an osteophyte and left L5 lamina corresponds to degenerative changes and hence are indeterminate but possibly benign in etiology. These areas will be monitored on follow-up imaging. CHEST FINDINGS: Lower Neck, Axillae, and Chest Wall: The thyroid gland is unremarkable. No suspicious supraclavicular or axillary lymphadenopathy is seen. No suspicious focal masses are seen chest wall. Lungs: Moderate to large volume left pleural effusion is resulting in compressive atelectasis of the underlying left lower lobe. A few small scattered pleural- based nodules in both lungs (series 18, image 70, 72, 75, 76, 77, 79, 82, 100, 102, 105, 106) are indeterminate but likely benign and will be monitored on follow-up imaging. Mediastinum: The aorta and the central pulmonary arteries demonstrate normal course and caliber. Please see the oncology findings detectable for details regarding the mediastinal lymphadenopathy. Pleura: Please see oncologic findings described above for details regarding the indeterminate left pleural effusion. No right pleural effusion is seen. ABDOMEN AND PELVIS FINDINGS: Hepatobiliary: A fan-shaped area of arterial enhancement in the left liver (series 8, image 27) is consistent with perfusion abnormality. No suspicious focal liver parenchymal lesions are identified. A tiny cyst is seen in the right liver (series 12, image 31). The portal veins and hepatic veins are patent. The gallbladder is markedly distended and shows multiple calculi. No intrahepatic or extra hepatic biliary duct dilatation is seen. Spleen: The spleen size is within normal limits, measuring 11.8 cm. No focal splenic parenchymal lesions are identified. Pancreas: Apart from peripancreatic lymphadenopathy, no discrete primary tumor is seen within the pancreas. The pancreas is unremarkable without any focal masses or ductal dilatation. Adrenal Glands: Both adrenal glands are unremarkable. Kidneys: Both kidneys demonstrate symmetric enhancement and excretion. No hydronephrosis or hydroureter or focal renal masses are identified. Urinary Bladder: The urinary bladder is minimally distended and is grossly unremarkable.. Gastrointestinal Tract: Please see oncologic findings described above for details regarding the possible site of primary tumor within the small bowel in the mid abdomen. No abnormally dilated small bowel or large bowel loops are identified. Postsurgical changes of right hemicolectomy are again seen. Prostate: The prostate is mildly enlarged, shows coarse calcifications and is otherwise unremarkable. Peritoneum/Retroperitoneum/Abdominal Wall: Please refer to the oncologic findings described above for details regarding the indeterminate moderate to large volume ascites. An umbilical hernia is seen containing ascites fluid. Lymph Nodes: Please see the oncology findings Raul for details regarding the malignant upper abdominal lymphadenopathy. Vessels: The abdominal aorta demonstrates normal course and caliber. The inferior vena cava is narrowed in caliber secondary to the portacaval and retroperitoneal lymphadenopathy. MUSCULOSKELETAL FINDINGS: Multilevel degenerative changes are seen in the spine. No suspicious osseous lesions are identified. Please refer to the oncologic findings described above with respect to indeterminate but likely benign findings at left T3 and left L5 lamina. Multiple injection granulomas are seen in bilateral gluteal subcutaneous soft tissues. Procedure Note Gracie Farmer MD - 12/24/2022 Examination: CT CHEST ABDOMEN PELVIS W WO CONTRAST LIVER on 12/24/2022 2:25PM. Clinical History: Neuroendocrine tumor. Indication: Metastatic pancreatic neuroendocrine tumor. Comparison: Outside 16-Ji-TTDOHCGY PET/CT's dated 11/20/2022 and08/21/2022 Technique: CT of the chest, abdomen and pelvis was performed without oralor intravenous contrast followed by scanning with both oral andintravenous contrast. ONCOLOGIC FINDINGS: Primary tumor and locoregional lymph nodes: Asymmetric small bowel wallthickening in the juxta midline right mid abdomen at the level of theumbilicus underlying the anterior abdominal wall and measuring up to 1.6cm (series 12, image 109), shows corresponding uptake on the cgsideo78-Zp-KKOCHOGV PET CTs from 11/20/2022 and 08/21/2022 and most likelyrepresents the primary tumor. Adjacent confluent mesenteric josue massoccluding the superior mesenteric vein and measuring 3.2 x 2.5 cm ([id number], image 86) represents locoregional josue involvement. This extendsfurther superiorly along the superior mesenteric vein to the level justbelow the confluence with the portal vein. Multiple venous collaterals areseen within the mesentery secondary to superior mesenteric venousocclusion which are predominantly draining via omental collaterals intothe splenic vein. In addition, extensive retroperitoneal, periportal,portacaval and gastrohepatic ligament lymphadenopathy seen which alsoshowed uptake on the most recent 34-In-OJAZMSWV PET/CT's. The largest portacavalnode measures 4.5 x 2.5 cm (series 12, image 66). The largest aortocavallymph node measures extending into the retrocaval region at the level ofinsertion of the renal veins and IVC measures 4.6 x 1.4 cm (series 12,image 72). A employer relations representative gastrohepatic ligament node measures 1.2 x 1.4cm (series 12, image 52) multiple other likely malignant lymph nodes areannotated on series 12. A few mildly enlarged mesenteric nodes areindeterminate and will be monitored on follow-up imaging. Distant metastatic disease: The malignant subcarinal node showing uptakeon the most recent 47-Qc-PBPMQEGY PET/CT's measures 1.8 x 0.9 cm ([id number], image 52). The posterior mediastinal node slightly inferiorly betweenthe azygous vein and the aorta posteriorly and esophagus anteriorlymeasures 1.2 x 1.1 cm (series 16, image 56) also showed uptake on the mostrecent prior PET/CT's. Few other smaller mediastinal nodes also showuptake on the studies and are annotated on series 16, images 24 and 43).These are consistent with metastatic disease. Moderate to large volume ascites and moderate to large volume left pleuraleffusion are indeterminate for malignancy. The ascites could also berelated to superior mesenteric vein occlusion. Focal uptake in the left T3 vertebral body corresponds to an osteophyteand left L5 lamina corresponds to degenerative changes and hence areindeterminate but possibly benign in etiology. These areas will bemonitored on follow-up imaging. CHEST FINDINGS: Lower Neck, Axillae, and Chest Wall: The thyroid gland is unremarkable. Nosuspicious supraclavicular or axillary lymphadenopathy is seen. Nosuspicious focal masses are seen chest wall. Lungs: Moderate to large volume left pleural effusion is resulting incompressive atelectasis of the underlying left lower lobe. A few smallscattered pleural- based nodules in both lungs (series 18, image 70, 72,75, 76, 77, 79, 82, 100, 102, 105, 106) are indeterminate but likelybenign and will be monitored on follow-up imaging. Mediastinum: The aorta and the central pulmonary arteries demonstratenormal course and caliber. Please see the oncology findings detectable fordetails regarding the mediastinal lymphadenopathy. Pleura: Please see oncologic findings described above for detailsregarding the indeterminate left pleural effusion. No right pleuraleffusion is seen. ABDOMEN AND PELVIS FINDINGS: Hepatobiliary: A fan-shaped area of arterial enhancement in the left liver(series 8, image 27) is consistent with perfusion abnormality. Nosuspicious focal liver parenchymal lesions are identified. A tiny cyst isseen in the right liver (series 12, image 31). The portal veins andhepatic veins are patent. The gallbladder is markedly distended and showsmultiple calculi. No intrahepatic or extra hepatic biliary duct dilatationis seen. Spleen: The spleen size is within normal limits, measuring 11.8 cm. Nofocal splenic parenchymal lesions are identified. Pancreas: Apart from peripancreatic lymphadenopathy, no discrete primarytumor is seen within the pancreas. The pancreas is unremarkable withoutany focal masses or ductal dilatation. Adrenal Glands: Both adrenal glands are unremarkable. Kidneys: Both kidneys demonstrate symmetric enhancement and excretion. Nohydronephrosis or hydroureter or focal renal masses are identified. Urinary Bladder: The urinary bladder is minimally distended and is grosslyunremarkable.. Gastrointestinal Tract: Please see oncologic findings described above fordetails regarding the possible site of primary tumor within the smallbowel in the mid abdomen. No abnormally dilated small bowel or large bowelloops are identified. Postsurgical changes of right hemicolectomy areagain seen. Prostate: The prostate is mildly enlarged, shows coarse calcifications andis otherwise unremarkable. Peritoneum/Retroperitoneum/Abdominal Wall: Please refer to the oncologicfindings described above for details regarding the indeterminate moderateto large volume ascites. An umbilical hernia is seen containing ascitesfluid. Lymph Nodes: Please see the oncology findings Raul for detailsregarding the malignant upper abdominal lymphadenopathy. Vessels: The abdominal aorta demonstrates normal course and caliber. Theinferior vena cava is narrowed in caliber secondary to the portacaval andretroperitoneal lymphadenopathy. MUSCULOSKELETAL FINDINGS: Multilevel degenerative changes are seen in the spine. No suspiciousosseous lesions are identified. Please refer to the oncologic findingsdescribed above with respect to indeterminate but likely benign findingsat left T3 and left L5 lamina. Multiple injection granulomas are seen in bilateral gluteal subcutaneoussoft tissues. IMPRESSION: 1. The primary tumor is most likely located within the small bowel loopin the right mid abdomen underlying the abdominal wall and is associatedwith extensive confluent mesenteric lymphadenopathy that is occluding thesuperior mesenteric vein to the level just below its confluence with theportal vein. In addition, multiple malignant upper abdominal lymph nodesare seen. No discrete mass is seen within the pancreas. 2. Mildly subcarinal and posterior mediastinal nodes show correspondinguptake on the most recent outside [id number] studies and areconsistent with metastatic disease. In addition, a few small subcentimetersuperior mediastinal nodes also show uptake and likely malignant. 3. Left pleural effusion and ascites are indeterminate for malignancy.The ascites could also be related to superior mesenteric vein occlusion. 4. No definite osseous metastatic disease. The previously describeduptake in the left T3 and left L5 lamina on the outside [id number] ismost likely related to degenerative changes rather than metastatic diseaseand monitored on follow-up imaging. ACTIONABLE ITEMS/RECOMMENDATIONS: See Impression Carol AVALOS IMG CT ORDERABLES * .Serum Creatinine (12/24/2022 10:40 AM CDT) Creatinine 0.90 0.67 - 1.17 mg/dL [facility] Blood 12/24/2022 10:4 0 AM CDT 12/24/2022 10:48 AM CDT Carol AVALOS LAB BLOOD ORDERABLES [facility] Unless otherwise noted, all lab tests performed by: Division of Pathology and Laboratory Medicine [address] [place] [address] [id number] * Glomerular Filtration Rate (12/24/2022 10:40 AM CDT) eGFR 107 >=60 mL/min/1.7 3 sq. m [facility] Comment: The eGFRcr is calculated with the 2020 CKD-EPI creatinine equation using creatinine, patient's age, and sex for adults 18 years of age and older. Other factors, especially muscle mass, may affect accuracy and need to be considered. According to the Kidney Disease: Improving Global Outcomes (KDIGO) CKD Work Group 2012 Clinical Practice Guideline, chronic kidney disease (CKD) is defined as the abnormalities of kidney structure or function, present for more than 3 months, with implications for health. CKD should be classified by cause, GFR category, and albuminuria category. KDIGO guidelines provide the following GFR categories Stage Description GFR mL/min/1.73 m2 G1* Normal or high >= 90 G2* Mildly decreased 60-89 G3a Mildly to moderately decreased 45-59 G3b Moderately to severely decreased 30-44 G4 Severely decreased 15-29 G5 Kidney failure <15 *In the absence of evidence of kidney damage, neither G1 nor G2 fulfill criteria for CKD. Blood 12/24/2022 10:4 0 AM CDT 12/24/2022 10:48 AM CDT Carol AVALOS LAB BLOOD ORDERABLES [facility] Unless otherwise noted, all lab tests performed by: Division of Pathology and Laboratory Medicine [address] [place] [address] [id number] * Fractionated Bilirubin (12/24/2022 10:40 AM CDT) Bili Total 1.0 <=1.2 mg/dL [facility] Comment: Indocyanine Green (ICG) may cause falsely elevated bilirubin results. Total and direct bilirubin must not be measured from samples containing indocyanine green. False elevation of total bilirubin can be seen in patients with IgG concentrations above 28 g/L. Bili Direct 0.2 <=0.3 mg/dL [facility] Comment:Indocyanine Green (I CG) may cause falsely elevated bilirubin results. Total and direct bilirubin must not be measured from samples containing indocyanine green. Bili Indirect 0.8 0.0 - 0.9 mg/dL [facility] Blood 12/24/2022 10:4 0 AM CDT 12/24/2022 10:48 AM CDT Carol AVALOS LAB BLOOD ORDERABLES [facility] Unless otherwise noted, all lab tests performed by: Division of Pathology and Laboratory Medicine [address] [place] [address] [id number] * Differential (12/24/2022 10:40 AM CDT) Neutrophil % 68.3 43.2 - 72.7 % [facility] Lymphocyte % 19.9 16.8 - 46.2 % [facility] Monocyte % 9.9 5.1 - 12.5 % [facility] Eosinophil % 1.0 0.4 - 6.3 % [facility] Basophil % 0.2 0.2 - 1.4 % [facility] IGRE % 0.7 0.1 - 1.5 % [facility] Comment:IGRE % count include s Metamyelocytes, Myelocytes, and Promyelocytes. Neutrophil Abs 5.61 1.95 - 7.25 K/uL [facility] Lymphocyte Abs 1.63 1.01 - 3.24 K/uL [facility] Monocyte Abs 0.81 0.24 - 0.85 K/uL [facility] Eosinophil Abs 0.08 0.02 - 0.50 K/uL [facility] Basophil Abs 0.02 0.02 - 0.09 K/uL [facility] IG Abs 0.06 0.01 - 0.12 K/uL [facility] Blood 12/24/2022 10:4 0 AM CDT 12/24/2022 10:44 AM CDT Carol AVALOS LAB BLOOD ORDERABLES [facility] Unless otherwise noted, all lab tests performed by: Division of Pathology and Laboratory Medicine [address] [place] [address] [id number] * (ABNORMAL) Prothrombin Time with INR (12/24/2022 10:40 AM CDT) PT 14.8(H) 11.9 - 14.5 second(s) [facility] INR 1.17(H) 0.87 - 1.12 AK MD JESSICA RANDLE [facility] Blood 12/24/2022 10:4 0 AM CDT 12/24/2022 11:01 AM CDT Narrative [facility] - 12/24/2022 11:28 AM CDT This lab cannot be scheduled at the following locations due to collection/proccessing restrictions: [facility] and [facility]. Carol AVALOS LAB BLOOD ORDERABLES [facility] Unless otherwise noted, all lab tests performed by: Division of Pathology and Laboratory Medicine [address] [place] [address] [id number] * BUN (12/24/2022 10:40 AM CDT) BUN 14 6 - 23 mg/dL [facility] Blood 12/24/2022 10:4 0 AM CDT 12/24/2022 10:48 AM CDT Carol AVALOS LAB BLOOD ORDERABLES Performing Organization Address City/[facility]/ZIP Co de Phone Number [facility] Unless otherwise noted, all lab tests performed by: Division of Pathology and Laboratory Medicine [address] [place] [address] [id number] * ALT (12/24/2022 10:40 AM CDT) ALT 21 <=41 U/L [place] MD [facility] Blood 12/24/2022 10:4 0 AM CDT 12/24/2022 10:48 AM CDT Carol AVALOS LAB BLOOD ORDERABLES [facility] Unless otherwise noted, all lab tests performed by: Division of Pathology and Laboratory Medicine [address] [place] [address] [phone] * Aspartate Aminotransferase (12/24/2022 10:40 AM CDT) AST 25 <=40 U/L [facility] Blood 12/24/2022 10:4 0 AM CDT 12/24/2022 10:48 AM CDT Carol AVALOS LAB BLOOD ORDERABLES [facility] Unless otherwise noted, all lab tests performed by: Division of Pathology and Laboratory Medicine [address] [place] [address] [phone] * Total Protein (12/24/2022 10:40 AM CDT) Pathologist [facility] Total Protein 7.6 6.4 - 8.3 g/dL [facility] Blood 12/24/2022 10:4 0 AM CDT 12/24/2022 10:48 AM CDT Carol AVALOS LAB BLOOD ORDERABLES Performing Organization Address City/[facility]/ZIP Co de Phone Number [facility] Unless otherwise noted, all lab tests performed by: Division of Pathology and Laboratory Medicine [address] [place] [address] [phone] * Alkaline Phosphatase (12/24/2022 10:40 AM CDT) Alk Phos 97 40 - 129 U/L [facility] Blood 12/24/2022 10:4 0 AM CDT 12/24/2022 10:48 AM CDT Carol AVALOS LAB BLOOD ORDERABLES [facility] Unless otherwise noted, all lab tests performed by: Division of Pathology and Laboratory Medicine [address] [place] [address] [phone] * (ABNORMAL) Glucose Level (12/24/2022 10:40 AM CDT) Glucose Level 104(H) 70 - 99 mg/dL [facility] Comment: Effective 11/20/15, the glucose reference intervals have been updated based on [place] [employer] guidelines (Standards of Medical Care in Diabetes 2016. Diabetes Care 2016; 39: S13-S22). Fasting blood glucose: Normal: 70-99 mg/dL Impaired fasting glucose (increased risk for diabetes or pre-diabetes): 100- 125 mg/dL Diabetes mellitus: >/=126 mg/dL Random blood glucose: Normal: 70-199 mg/dL Note: Random glucose >100 mg/dL is associated with increased risk for diabetes Blood 12/24/2022 10:4 0 AM CDT 12/24/2022 10:48 AM CDT Carol AVALOS LAB BLOOD ORDERABLES Performing Organization Address City/[facility] de Phone Number [facility] Unless otherwise noted, all lab tests performed by: Division of Pathology and Laboratory Medicine [address] [place] [address] [phone] * Calcium Level (12/24/2022 10:40 AM CDT) Calcium Lvl 8.6 8.4 - 10.2 mg/dL [facility] Blood 12/24/2022 10:4 0 AM CDT 12/24/2022 10:48 AM CDT Carol AVALOS LAB BLOOD ORDERABLES Performing Organization Address City/[facility] Co de Phone Number [facility] Unless otherwise noted, all lab tests performed by: Division of Pathology and Laboratory Medicine [address] [place] [address] [phone] * Albumin Level (12/24/2022 10:40 AM CDT) Albumin Lvl 3.6 3.5 - 5.2 gm/dL [facility] Blood 12/24/2022 10:4 0 AM CDT 12/24/2022 10:48 AM CDT Carol AVALOS LAB BLOOD ORDERABLES Performing Organization Address City/[facility]/ZIP Co de Phone Number [facility] Unless otherwise noted, all lab tests performed by: Division of Pathology and Laboratory Medicine [address] [place] [address] [phone] * (ABNORMAL) Electrolyte Panel (12/24/2022 10:40 AM CDT) Sodium Lvl 146(H) 136 - 145 mEq/L [facility] Potassium Lvl 4.0 3.5 - 5.1 mEq/L [facility] Chloride 106 98 - 107 mEq/L [facility] CO2 33(H) 22 - 29 mEq/L [facility] Anion Gap 7 4 - 14 mEq/L [facility] Blood 12/24/2022 10:4 0 AM CDT 12/24/2022 10:48 AM CDT Caorl AVALOS LAB BLOOD ORDERABLES Performing Organization Address [facility] Co de Phone Number [facility] Unless otherwise noted, all lab tests performed by: Division of Pathology and Laboratory Medicine [address] [place] [phone] * OSI PET CT Skull to Mid Thigh (11/20/2022 3:14 AM CDT) Narrative Systemgenerated, Documentation - 12/19/2022 3:14 AM CDT Study acquired at another institution. For comparison only. No [facility] interpretation requested or available. Carol AVALOS IMG OUTSIDE IMAGE OR DERABLES after 11/02/2022 Care Teams Sql Server Bi Developer Relationship Specialty Start Date End Date Eliane Harris MD [address] [place] [phone] [email or web address] PCP - External Referring Hematology and Oncology 12/11/22 Carol Gonzales PA [facility] [place] [address] [email or web address] PCP - General Gastrointestinal Medical Oncology 12/15/22 04/14/23 Jun Cotton MD [address] [place] [address] [email or web address] PCP - General Gastrointestinal Medical Oncology 04/15/23
--- NOTE | 2023-11-02 11:46 | RAD REPORT ---
EXAM DESCRIPTION: RAD - Elbow Left 3 View - 11/02/2023 11:36 am CLINICAL HISTORY: Left elbow pain status post trauma FINDINGS: No fracture or dislocation is seen. Calcification in upper medial elbow may be the sequela of old trauma
--- NOTE | 2023-11-02 12:29 | RAD REPORT ---
EXAM DESCRIPTION: RAD - Wrist Left 3 View - 11/02/2023 11:35 am CLINICAL HISTORY: Left wrist pain status post injury FINDINGS: Lucency within the triquetrum on the lateral view may represent a prominent trabecula or n ondisplaced fracture. If clinically indicated further evaluation with CT could be obtained No dislocation
--- NOTE | 2023-11-02 13:03 | EDPHYS ---
Physician Documentation [facility] Name: Harini Villalobos Age: 48 yrs Sex: Male : 1975 Arrival Date: 11/02/2023 Time: 10:57 Bed 26 Private MD: ED Physician Samuel Sheehan HPI: 11/01 11:14 This 48 yrs old Male presents to ER via Ambulatory with complaints of Fall sb4 Injury, Arm Injury. 11:32 slipped on gasoline at the gas station, fell onto left arm. complaining of pain to left sb4 elbow and left wrist. no head trauma, no LOC, no active bleeding. Historical: - Allergies: 11:08 No Known Allergies; as6 - PMHx: 11:08 Diverticulitis; Hypertension; as6 - PSHx: 11:08 colon resection; as6 - Immunization history:: Adult Immunizations up to date. - Infectious Disease History:: Denies. - Social history:: Smoking status: Patient denies any tobacco usage or history of. ROS: 11:32 Constitutional: Negative for fever, chills, and weight loss, sb4 11:32 MS/extremity: Positive for injury or acute deformity, pain, swelling, tenderness, of the left wrist and left elbow, 11:32 All other systems are negative, Exam: 11:32 Constitutional: This is a well developed, well nourished patient who is awake, alert, sb4 and in no acute distress. Head/Face: Normocephalic, atraumatic. Eyes: Extra-ocular motions intact. Periorbital areas with no swelling, redness, or edema. ENT: Mucous membranes moist. Skin: Warm, dry with normal turgor. Normal color with no rashes, no lesions, and no evidence of cellulitis. Neuro: Awake and alert, GCS 15, oriented to person, place, time, and situation. Motor strength 5/5 in all extremities. Sensory grossly intact. 11:32 Musculoskeletal/extremity: ROM: limited active range of motion due to pain, limited passive range of motion due to pain, Pulses: are normal with no appreciated deficits, Perfusion: the extremity is normally perfused throughout, Sensation intact. Vital Signs: 11:06 BP 175 / 92; Pulse 72; Resp 18; Temp 97.4; Pulse Ox 98% ; Weight 106.59 kg; Height 6 as6 ft. 2 in. ; Pain 10/10; 11:23 BP 136 / 104; Pulse 67; Resp 18; Temp 97.6; Pulse Ox 100% on R/A; kj2 12:17 BP 155 / 98; kj2 12:17 Pulse 67; Pulse Ox 99% on R/A; kj2 13:11 BP 141 / 90; kj2 13:11 Pulse 68; Resp 20; Pulse Ox 100% on R/A; kj2 11:06 Body Mass Index 30.17 (106.59 kg, 187.96 cm) as6 11:06 Pain Scale: Adult as6 MDM: 11:10 Patient medically screened. sb4 13:03 Data reviewed: vital signs, nurses notes, radiologic studies, and as a result, I will sb4 discharge patient. Counseling: I had a detailed discussion with the patient and/or guardian regarding the historical points, exam findings, and any diagnostic results supporting the discharge/admit diagnosis, radiology results, the need for outpatient follow up, a orthopedic surgeon, to return to the emergency department if symptoms worsen or persist or if there are any questions or concerns that arise at home. 11/01 11:14 Order name: Wrist Left (3 View) XRAY; Complete Time: 12:31 sb4 11/01 11:14 Order name: Elbow Left 3 View XRAY; Complete Time: 11:48 sb4 11/01 11:14 Order name: Ice pack; Complete Time: 11:37 sb4 11/01 13:03 Order name: Wrist Splint; Complete Time: 13:10 sb4 Administered Medications: 11:37 Drug: Hydrocodone-Acetaminophen PO (7.5 mg-325 mg) 1 tabs PO once Route: PO; kj2 12:18 Follow up: Response: Pain is decreased kj2 Disposition: 18:12 Co-signature as Attending Physician, Samuel Sheehan MD I reviewed the patient's care rn provided by the Advanced Practice Provider and agree with the diagnosis and treatment plan. Disposition Summary: 11/02/23 13:03 Discharge Ordered Notes: Location: Home sb4 Problem: new sb4 Symptoms: have improved sb4 Condition: Stable sb4 Diagnosis - Sprain of unspecified part of left wrist and hand sb4 Followup: sb4 - With: Braxton Liu MD - When: As needed - Reason: If symptoms return Discharge Instructions: - Discharge Summary Sheet sb4 - Wrist Sprain, Adult sb4 Forms: - Medication Reconciliation Form sb4 - Patient Portal Instructions sb4 - Leadership Thank You Letter sb4 Signatures: Dispatcher [employer] Samuel Myers MD MD rn Slawson, Ashby, RN RN as6 Keara Burrell, PAJonathanC PARomulo sb4 Nicolle Marquez RN RN kj2 Corrections: (The following items were deleted from the chart) 11:33 11:32 slipped on gasoline at the gas station, fell onto left arm. complaining of pain sb4 to left elbow and left wrist. sb4
--- NOTE | 2023-11-02 13:03 | ER ---
Nurse's Notes [facility] Name: Harini Villalobos Age: 48 yrs Sex: Male : 1975 Arrival Date: 11/02/2023 Time: 10:57 Bed 26 Private MD: Diagnosis: Sprain of unspecified part of left wrist and hand Presentation: 11/01 11:07 Chief complaint: Patient states: pt slipped in diesel at the gas station and fell. pt as6 c/o pain to left wrist. Coronavirus screen: At this time, the client does not indicate any symptoms associated with coronavirus-19. Ebola Screen: No symptoms or risks identified at this time. Initial Sepsis Screen: Does the patient meet any 2 criteria? No. Patient's initial sepsis screen is negative. Does the patient have a suspected source of infection? No. Patient's initial sepsis screen is negative. Risk Assessment: Do you want to hurt yourself or someone else? Patient reports no desire to harm self or others. Onset of symptoms was November 02, 2023. 11:07 Acuity: MELO 4 as6 11:07 Method Of Arrival: Ambulatory as6 Triage Assessment: 11:08 General: Appears in no apparent distress. Behavior is calm, cooperative. Pain: as6 Complains of pain in left arm. Historical: - Allergies: 11:08 No Known Allergies; as6 - PMHx: 11:08 Diverticulitis; Hypertension; as6 - PSHx: 11:08 colon resection; as6 - Immunization history:: Adult Immunizations up to date. - Infectious Disease History:: Denies. - Social history:: Smoking status: Patient denies any tobacco usage or history of. Screenin:45 [facility] ED Fall Risk Assessment (Adult) History of falling in the last 3 months, kj2 including since admission Yes- single mechanical fall (1 pt) Confusion or Disorientation No (0 pts) Intoxicated or Sedated No (0 pts) Impaired Gait No (0 pts) Mobility Assist Device Used No (0 pt) Altered Elimination No (0 pt) Score/Fall Risk Level 0 - 2 = Low Risk Educated pt \T\ family on fall prevention, incl call for assistance when getting out of bed, Hourly rounding (assess needs \T\ fall precautionary measures) done. Abuse screen: Denies threats or abuse. Denies injuries from another. Nutritional screening: No deficits noted. Tuberculosis screening: No symptoms or risk factors identified. Assessment: 11:38 General: Appears uncomfortable, Behavior is calm, cooperative, Smells of auto gasoline kj2 since he fell in gas at gas station. Pain: Complains of pain in left elbow and left wrist and left arm Pain currently is 10 out of 10 on a pain scale. Neuro: No deficits noted. Cardiovascular: Capillary refill Patient's skin is warm and dry. Chest pain is denied. Respiratory: No deficits noted. GI: No deficits noted. Musculoskeletal: Swelling present in left elbow. 12:19 Reassessment: Patient and/or family updated on plan of care and expected duration. Pain kj2 level reassessed. Patient is alert, oriented x 3, equal unlabored respirations, skin warm/dry/pink. Patient states symptoms have improved. 13:14 Reassessment: No changes from previously documented assessment. Patient is alert, kj2 oriented x 3, equal unlabored respirations, skin warm/dry/pink. Vital Signs: 11:06 BP 175 / 92; Pulse 72; Resp 18; Temp 97.4; Pulse Ox 98% ; Weight 106.59 kg; Height 6 as6 ft. 2 in. ; Pain 10/10; 11:23 BP 136 / 104; Pulse 67; Resp 18; Temp 97.6; Pulse Ox 100% on R/A; kj2 12:17 BP 155 / 98; kj2 12:17 Pulse 67; Pulse Ox 99% on R/A; kj2 13:11 BP 141 / 90; kj2 13:11 Pulse 68; Resp 20; Pulse Ox 100% on R/A; kj2 11:06 Body Mass Index 30.17 (106.59 kg, 187.96 cm) as6 11:06 Pain Scale: Adult as6 ED Course: 11:00 Patient arrived in ED. mr 11:06 Arm band placed on right wrist. as6 11:08 Triage completed. as6 11:10 Keara Burrell PA-C is PHCP. sb4 11:10 Samuel Sheehan MD is Attending Physician. sb4 11:13 Nicolle Marquez, TIM is Primary Nurse. kj2 11:37 Wrist Left (3 View) XRAY In Process Unspecified. EDMS 11:38 Elbow Left 3 View XRAY In Process Unspecified. EDMS 11:46 Patient has correct armband on for positive identification. Bed in low position. Call kj2 light in reach. Side rails up X 1. Provided Education on: call light, fall precautions, meds. 13:03 Braxton Liu MD is Referral Physician. sb4 13:10 Velcro wrist splint applied to left wrist. kj2 13:15 No provider procedures requiring assistance completed. kj2 13:16 Patient did not have IV access during this emergency room visit. kj2 Administered Medications: 11:37 Drug: Hydrocodone-Acetaminophen PO (7.5 mg-325 mg) 1 tabs PO once Route: PO; kj2 12:18 Follow up: Response: Pain is decreased kj2 Medication: 11:47 VIS not applicable for this client. kj2 Outcome: 13:03 Discharge ordered by . sb4 13:14 Discharged to home ambulatory, with family, kj2 13:14 Condition: stable kj2 13:14 Discharge instructions given to patient, family, Instructed on follow up and referral plans. Demonstrated understanding of instructions, follow-up care, 13:17 Patient left the ED. kj2 Signatures: Dispatcher [employer] EDME Hailey Boo, Reg Reg mr Flo Fox, RN RN as6 Keara Burrell, PA-C PA-C sb4 Nicolle Marquez, RN RN kj2 Corrections: (The following items were deleted from the chart) 13:31 13:14 Discharged to home ambulatory, with family, kj2 kj2
[2023-11-02 13:43] VITALS: BP 141/90; TEMP 97.6; O2SAT 100
== END 2023-11-02 13:17 | disposition home or self-care (01) ==
LOC: ER 10:57
DX: S63.502A Unspecified sprain of left wrist, initial encounter (principal); I10 Essential (primary) hypertension; K57.92 Diverticulitis of intestine, part unspecified, without perforation or abscess without bleeding; W01.0XXA Fall on same level from slipping, tripping and stumbling without subsequent striking against object, initial encounter; Y93.89 Activity, other specified; Y92.524 Gas station as the place of occurrence of the external cause
CPT/HCPCS: 99283